=== PATIENT | male | born 2000 | race Caucasian/White ===

== ENCOUNTER 2022-11-22 14:32 | Emergency (ER) | payer OTHER, SELFPAY ==
[2022-11-22] VITALS (8 sets, daily range): BP systolic 117–146; BP diastolic 65–83; PULSE 77–92; RESP 15; O2SAT 98–99; BMI 31.3
--- NOTE | 2022-11-22 15:02 | ED_ITS ---
HPI - Wound/Laceration <ALEXANDRE Sandoval Last Filed: 11/22/22 17:58> General Chief Complaint: Wound/Laceration Stated Complaint: bleeding Time Seen by Provider: 11/22/22 15:01 Source: patient Mode of arrival: Wheelchair History of Present Illness HPI narrative: This is a 22-year-old male presents to the emergency department due to a left forearm laceration after slipping and falling and hitting his left forearm on a side of a stainless steel part of a boat. Tetanus is up-to-date. Patient denies any numbness in his distal hand or fingers. He states that hurts in his forearm when he flexes or extends at the wrist. Patient states that the stainless steel piece was very clean. Related Data Allergies Allergy/AdvReac Type Severity Reaction Status Date / Time No Known Drug Allergies Allergy Verified 11/22/22 14:38 Review of Systems <ALEXANDRE Sandoval Last Filed: 11/22/22 17:58> Review of Systems Narrative: GENERAL: Denies chills, fatigue, malaise, fever, sweats. HEENT: Denies sinus pain, ear pain, sore throat, difficulty swallowing, dizziness. RESPIRATORY: Denies dyspnea, cough, wheezing, hemoptysis, sputum. CARDIOVASCULAR: Denies chest pain, palpitations, orthopnea, edema, GASTROINTESTINAL: Denies nausea, vomiting, abdominal pain, diarrhea, constipation, melena. : Denies dysuria, frequency, incontinence, hematuria, urinary retention. MUSCULOSKELETAL: Left forearm pain denies weakness, joint pain, or bony pain SKIN: Left forearm laceration Denies rash, skin lesions, or other NEUROLOGIC: Denies weakness, headache, numbness, change in speech, confusion, seizures, incoordination. PSYCHIATRIC: No concerning psychosocial issues. 12 point review of systems is negative except for those stated above Patient History <ALEXANDRE Sandoval Last Filed: 11/22/22 17:58> Social History Smoking Status: Unknown if ever smoked Smoking Status: Unknown if ever smoked alcohol intake frequency: holidays/special occasions only Substance Use Type: does not use Exam <ALEXANDRE Sandoval Last Filed: 11/22/22 17:58> Narrative Exam Narrative: GENERAL: Well-developed patient, in mild distress. HEAD: Atraumatic. Normocephalic. EYES: Pupils equal round and reactive. Extraocular motions intact. No scleral icterus. No injection or drainage. ENT: Nose without bleeding, purulent drainage. Throat without erythema, tonsillar hypertrophy or exudate. Airway patent. NECK: Trachea midline. Non tender CARDIOVASCULAR: Regular rate and rhythm without murmurs, gallops, or rubs. RESPIRATORY: Clear to auscultation. Breath sounds equal bilaterally. No wheezes, rales, or rhonchi. GASTROINTESTINAL: Abdomen soft, non-tender, nondistended. EXTREMITIES: No edema or joint tenderness. BACK: Nontender without deformity or crepitance. No flank tenderness. NEURO: AOx3. SKIN: Approximately 12 cm laceration to the dorsal aspect of the left forearm. No obvious tendon or muscle injury on exam. Patient has decreased extension of the left wrist secondary to pain. He is able to fully extend and flex his distal fingers. 2+ radial pulse. Neurovascularly intact throughout. Able to pronate and supinate although does report some pain to the forearm. Initial Vital Signs Initial Vital Signs: Vital Signs Pulse Rate 77 11/22/22 14:32 Respiratory Rate 15 11/22/22 14:32 Blood Pressure 117/65 11/22/22 14:32 Pulse Oximetry 98 11/22/22 14:32 Oxygen Delivery Method Room Air 11/22/22 14:32 <Freya Willsi, - Last Filed: 11/22/22 18:33> Narrative Exam Narrative: GENERAL: Well-developed patient, in mild distress. HEAD: Atraumatic. Normocephalic. EYES: Pupils equal round and reactive. Extraocular motions intact. No scleral icterus. No injection or drainage. ENT: Nose without bleeding, purulent drainage. Throat without erythema, tonsillar hypertrophy or exudate. Airway patent. NECK: Trachea midline. Non tender CARDIOVASCULAR: Regular rate and rhythm without murmurs, gallops, or rubs. RESPIRATORY: Clear to auscultation. Breath sounds equal bilaterally. No wheezes, rales, or rhonchi. GASTROINTESTINAL: Abdomen soft, non-tender, nondistended. EXTREMITIES: No edema or joint tenderness. BACK: Nontender without deformity or crepitance. No flank tenderness. NEURO: AOx3. SKIN: Approximately 12 cm laceration to the dorsal aspect of the left forearm. No obvious tendon or muscle injury on exam. Patient has decreased extension of the left wrist secondary to pain. He is able to fully extend and flex his distal fingers. 2+ radial pulse. Neurovascularly intact throughout. Able to pronate and supinate although does report some pain to the forearm. Mank: exam: Patient examined independently by myself as well. Patient has approximately 12 cm laceration over the dorsum of the left forearm not circumferential, is through the soft tissue, tendon appears to be intact as well as muscle but patient does have some obvious movement of the tendons with movement of his fingers and some slight decreased extension of the left wrist concern for pain versus tendon injury. Patient has full flexion-extension of his fingers. Cap refills less than 2 seconds. 2+ dorsal pulse. Sensation throughout. Patient has normal pronation supination. Initial Vital Signs Initial Vital Signs: Vital Signs Pulse Rate 77 11/22/22 14:32 Respiratory Rate 15 11/22/22 14:32 Blood Pressure 117/65 11/22/22 14:32 Pulse Oximetry 98 11/22/22 14:32 Oxygen Delivery Method Room Air 11/22/22 14:32 Procedures <Dedrick Evans PA-C - Last Filed: 11/22/22 17:58> Laceration Repair Laceration 1: Time of procedure: 17:06 Site: upper extremity Side (If applicable): left Size (cm): 12 Description: linear and clean Depth: simple, single layer Local Anesthetic: lidocaine 1% Amount of anesthesia used (mL): 10 Pre-repair: irrigated extensively, deep structures intact and cleansed with chlorhexadine Skin layer closed with: nylon Skin layer suture size: 4-0 Number of sutures: 14 Technique: simple, interrupted Subcutaneous layer closed with: vicryl Subcutaneous layer suture size: 4-0 Number of sutures: 7 Course <Dedrick Evans PA-C - Last Filed: 11/22/22 17:58> Orders Ordered: Discontinued Medications Lidocaine HCl (Lidocaine 1% 20 Ml) 20 ml INJ INTRA-OP ONE Stop: 11/22/22 15:09 Lidocaine/Epinephrine (Lidocaine 2% W/Epi Inj) 20 ml INJ INTRA-OP ONE Stop: 11/22/22 15:13 Consultations Consultation #1: [id number]: Discussed patient with Dr. Andrade, orthopedist, who recommended closure and splinting with wrist in extension. Vital Signs Vital signs: Vital Signs - 8 hr 11/22/22 14:32 11/22/22 14:38 11/22/22 14:39 Pulse Rate 77 87 87 Respiratory Rate 15 Blood Pressure 117/65 Pulse Oximetry 98 98 98 Oxygen Delivery Method Room Air 11/22/22 14:39 11/22/22 15:00 11/22/22 15:00 Pulse Rate 80 Respiratory Rate Blood Pressure 117/65 124/65 Pulse Oximetry 98 Oxygen Delivery Method 11/22/22 15:30 11/22/22 15:30 11/22/22 16:00 Pulse Rate 79 Respiratory Rate Blood Pressure 129/80 132/74 Pulse Oximetry 99 Oxygen Delivery Method 11/22/22 16:00 11/22/22 16:30 11/22/22 16:30 Pulse Rate 87 85 Respiratory Rate Blood Pressure 136/75 Pulse Oximetry 98 98 Oxygen Delivery Method 11/22/22 17:00 11/22/22 17:00 Pulse Rate 92 H Respiratory Rate Blood Pressure 146/83 H Pulse Oximetry 98 Oxygen Delivery Method <Freya Willis, DO - Last Filed: 11/22/22 18:33> Orders Ordered: Discontinued Medications Lidocaine HCl (Lidocaine 1% 20 Ml) 20 ml INJ INTRA-OP ONE Stop: 11/22/22 15:09 Lidocaine/Epinephrine (Lidocaine 2% W/Epi Inj) 20 ml INJ INTRA-OP ONE Stop: 11/22/22 15:13 Vital Signs Vital signs: Vital Signs - 8 hr 11/22/22 14:32 11/22/22 14:38 11/22/22 14:39 Pulse Rate 77 87 87 Respiratory Rate 15 Blood Pressure 117/65 Pulse Oximetry 98 98 98 Oxygen Delivery Method Room Air 11/22/22 14:39 11/22/22 15:00 11/22/22 15:00 Pulse Rate 80 Respiratory Rate Blood Pressure 117/65 124/65 Pulse Oximetry 98 Oxygen Delivery Method 11/22/22 15:30 11/22/22 15:30 11/22/22 16:00 Pulse Rate 79 Respiratory Rate Blood Pressure 129/80 132/74 Pulse Oximetry 99 Oxygen Delivery Method 11/22/22 16:00 11/22/22 16:30 11/22/22 16:30 Pulse Rate 87 85 Respiratory Rate Blood Pressure 136/75 Pulse Oximetry 98 98 Oxygen Delivery Method 11/22/22 17:00 11/22/22 17:00 Pulse Rate 92 H Respiratory Rate Blood Pressure 146/83 H Pulse Oximetry 98 Oxygen Delivery Method MDM - Wound/Laceration <Dedrick Evans PA-C - Last Filed: 11/22/22 17:58> MDM Narrative Medical decision making narrative: MDM * differential diagnosis includes but not limited to laceration, fracture, muscular injury, tendon injury, nerve injury * Prior records reviewed: Patient has not been here for similar complaints in the past. * My lab interpretation: None * My imgaing interpretation: None * Clinical Decision Rules/Scores evaluated: None * Independent discussions with: None ED Course: This is a 22-year-old male presents emergency department due to a left forearm laceration affecting the subcutaneous layer. On exam the patient maintained his flexion and extension at the distal wrist as well as fingers. Patient was discussed with Dr. Andrade who recommended closure with splinting with the wrist in extension. Patient's laceration was closed without complications with combination of Vicryl and nylon sutures as documented in the procedure note above. Patient was splinted without complications. Patient will follow up with Dr. Andrade for further evaluation and management. Tetanus was up-to-date. Patient's wound was extensively irrigated and reports being cut by very clean piece of stainless steel. No antibiotics prescribed. Shared Decision Making: Discussed plan with patient who is comfortable with the plan Social Considerations: None Disposition: Discharged to home Discharge Plan Departure Patient Disposition: Home Clinical Impression: Laceration Instructions: DI for Laceration Repair Activity Restrictions/Additional Instructions: Thank you for coming to the [facility] today. I am glad that we are able to close laceration today. Your tetanus was up-to-date. Please follow up with Dr. Andrade who is an orthopedist for further management and evaluation. Please call his office tomorrow to arrange for an appointment. I hope you feel better soon. Referrals: Bo Andrade MD [Physician] - (Follow up deep laceration, possibly affecting extensor muscles) Stand Alone Forms: Patient Portal/API <Freya Willis DO - Last Filed: 11/22/22 18:33> Cosign ED Attending Cosignature Attestation: I was immediately available in the department for consultation. Documentation has been reviewed. Patient was also seen in the department. Wound was repaired here in the department concern for possible tendon or muscle injury although no clear injury. Plan for follow up with Orthopedic surgery, splint, patient had deep as well as superficial sutures and close follow-up.
== END 2022-11-22 17:36 | disposition home or self-care (01) ==
PROVIDERS: Emergency Provider Physician Assistant Medical
DX: S51.812A Laceration without foreign body of left forearm, initial encounter (principal); W01.198A Fall on same level from slipping, tripping and stumbling with subsequent striking against other object, initial encounter; Y99.0 Civilian activity done for income or pay
CPT/HCPCS: 12015; 29125; 99283